=== PATIENT | male | born 1945 | race Caucasian/White ===

== ENCOUNTER 2021-09-21 10:00 | Outpatient (RCR) | payer OTHER, SELFPAY | END 2021-09-23 23:59 | disposition home or self-care (01) | LOC: CR 10:00 | PROVIDERS: Visit Provider Family Medicine | DX: Z51.89 Encounter for other specified aftercare (principal); Z95.1 Presence of aortocoronary bypass graft | CPT/HCPCS: S9472 ==

== ENCOUNTER 2021-10-22 10:00 | Outpatient (RCR) | payer OTHER, SELFPAY | END 2021-10-23 23:59 | disposition home or self-care (01) | LOC: CR 10:00 | PROVIDERS: PCP Internal Medicine; Visit Provider Family Medicine | DX: Z51.89 Encounter for other specified aftercare (principal); Z95.1 Presence of aortocoronary bypass graft; I25.5 Ischemic cardiomyopathy | CPT/HCPCS: S9472 ==

== ENCOUNTER 2021-11-21 10:00 | Outpatient (RCR) | payer OTHER, SELFPAY | END 2021-11-23 23:59 | disposition home or self-care (01) | LOC: CR 10:00 | PROVIDERS: Visit Provider Family Medicine | DX: Z51.89 Encounter for other specified aftercare (principal); Z95.1 Presence of aortocoronary bypass graft | CPT/HCPCS: S9472 ==

== ENCOUNTER 2021-11-26 14:45 | Outpatient (RCR) | payer OTHER, SELFPAY | END 2021-12-24 23:59 | disposition home or self-care (01) | LOC: CR 14:45 | PROVIDERS: Visit Provider Family Medicine | DX: Z51.89 Encounter for other specified aftercare (principal); Z95.5 Presence of coronary angioplasty implant and graft | CPT/HCPCS: S9472 ==

== ENCOUNTER 2021-12-19 10:00 | Outpatient (RCR) | payer OTHER, SELFPAY | END 2021-12-20 16:42 | LOC: CR 10:00 | PROVIDERS: Visit Provider Family Medicine | DX: Z51.89 Encounter for other specified aftercare (principal); Z95.1 Presence of aortocoronary bypass graft; I24.9 Acute ischemic heart disease, unspecified | CPT/HCPCS: S9472 ==